=== PATIENT | female | born 1995 ===

== ENCOUNTER → 2024-07-07 | Outpatient (REF) | payer OTHER | LOC: M LAB REF 18:12 | PROVIDERS: ATTEND Student in an Organized Health Care Education/Training Program | DX: R30.0 Dysuria (principal) ==

== ENCOUNTER → 2024-08-09 | Outpatient (REF) | payer OTHER | LOC: M LAB REF 17:57 | PROVIDERS: ATTEND Student in an Organized Health Care Education/Training Program | DX: R30.0 Dysuria (principal) ==